=== PATIENT | female | born 1950 | race Two or more races ===

== ENCOUNTER 2018-04-11 07:39 | Outpatient (CLI) | payer OTHER | END 2018-04-11 09:48 | disposition home or self-care (01) | LOC: TOM 07:39 | DX: D12.1 Benign neoplasm of appendix (principal); R19.4 Change in bowel habit ==

== ENCOUNTER 2018-06-02 12:00 | Inpatient (IN) | payer OTHER ==
[~2018-06-02] VITALS: Ht 152.4 cm; Wt 61.2 kg
[2018-06-02] MEDS ORDERED: SYNTHROID50 MCG PO (12:26)
[2018-06-02] MEDS ORDERED: SIMVASTATIN40 MG PO (12:26)
[2018-06-02] MEDS ORDERED: ADVAIR HFA 230/12 GM IH (12:27)
[2018-06-02] MEDS ORDERED: MELOXICAM15 MG PO (12:27)
[2018-06-09] MEDS ORDERED: OXYC1TAB9 PO (09:58)
[2018-06-09] MEDS ORDERED: INTESTINEX680 M1 PO (09:59)
== END 2018-06-09 11:49 | disposition home or self-care (01) | DRG 331 ==
LOC: O/R 06-05 06:20 → SURH 06-05 06:20
PROVIDERS: Surgery
PROC: 07TC4ZZ Resection of Pelvis Lymphatic, Percutaneous Endoscopic Approach (ICD-10-PCS; 2018-06-05)
PROC: 3E0F7GC Introduction of Other Therapeutic Substance into Respiratory Tract, Via Natural or Artificial Opening (ICD-10-PCS; 2018-06-05)
PROC: 0DTF4ZZ Resection of Right Large Intestine, Percutaneous Endoscopic Approach (ICD-10-PCS; principal; 2018-06-05 23:00)
DX: D12.1 Benign neoplasm of appendix (principal); D12.2 Benign neoplasm of ascending colon; J45.998 Other asthma; E78.00 Pure hypercholesterolemia, unspecified; E03.8 Other specified hypothyroidism